=== PATIENT | female | born 1970 | race American Indian/Alaskan Native ===

== ENCOUNTER 2019-04-11 17:16 | Emergency (ER) | payer BC ==
[2019-04-11 17:44] VITALS: BP 141/86
[2019-04-11 18:13] LABS: Mean Corpuscular HGB Conc 33 % (30-34); Mean Corpuscular Volume 89 fl (79-97); Platelet Count 317 K/mm3 (140-440); Red Blood Count 5.07 M/mm3 (3.65-5.03)
[2019-04-11 18:36] LABS: Alanine Aminotransferase 50 units/L (7-56); Albumin 4.4 g/dL (3.9-5); BUN/Creatinine Ratio 23; Blood Urea Nitrogen 16 mg/dL (7-17); Calcium 9.7 mg/dL (8.4-10.2); Hemolysis Index 55
[2019-04-11 18:59] LABS: Basophils % (Manual) 0 % (0.0-1.8); Eosinophils % (Manual) 0 % (0.0-4.3); Total Cells Counted 100
[2019-04-11 19:00] LABS: Anisocytosis Few
--- NOTE | 2019-04-11 20:34 | Event Note ---
ED Screening Note ED Screening Note: 48 Y/O FEMALE PRESENTS TO ED C/O OF VOMITING AND RLQ SEVERE PAIN. NO FEVER OR CHILLS. NO HEMOPTYSIS The patient was seen in triage for ABOVE Labs/imaging ordered to evaluate for a cause of this complaint. Vital signs reviewed, patient awake and alert in NAD. This initial assessment/diagnostic orders/clinical plan/treatment(s) is/are subject to change based on patients health status, clinical progression and re- assessment by fellow clinical providers in the ED. Further treatment and workup at subsequent clinical providers discretion. Patient/guardian urged not to elope from the ED as their condition may be serious if not clinically assessed and managed. Initial orders include: CT ABDOMEN LABS IV
[2019-04-11 20:47] LABS: Bilirubin,Urine NEG (Negative); Blood,Urine NEG (Negative); Color,Urine Yellow (Yellow); Mucus,Urine FEW /HPF; Protein,Urine <15 mg/dL mg/dL (Negative); Urobilinogen,Urine < 2.0 mg/dL (<2.0)
[2019-04-11] MEDS ORDERED: ONDANSETRON 4 MG/2 ML INJ IV ONE (23:10)
[2019-04-11] MEDS ORDERED: SODIUM CHLORIDE 0.9% 1000 ML 1,000 ML IV ONE (23:10)
--- NOTE | 2019-04-11 23:58 | Emergency Department Report ---
ED Abdominal Pain HPI - General Chief Complaint: Abdominal Pain Stated Complaint: STOMACH PAIN/VOMIT Time Seen by Provider: 04/11/19 20:30 Source: patient Mode of arrival: Ambulatory Limitations: No Limitations - History of Present Illness Initial Comments: Ms. Estrada is a 48 Y/O FEMALE PRESENTS TO ED C/O OF VOMITING AND RLQ SEVERE PAIN. NO FEVER OR CHILLS. NO HEMOPTYSIS patient has history of hypertension and diabetes type 2, states nausea and vomiting exacerbated by by mouth intake. Symptoms are relieved by nothing tried. There is no fever no chills, no chest pain or shortness of breath. Patient has PCP at [facility] [place] however she was unable to get an appointment for today.Abdominal pain for over 10 radiating to bilateral lower quadrant. Patient denies history of abdominal surgeries. MD Complaint: abdominal pain Onset/Timin -: days(s) Location: LLQ, RLQ Radiation: LLQ, RLQ Severity: moderate Severity scale (0 -10): 5 Quality: cramping, aching Consistency: constant Improves With: nothing Worsens With: eating Associated Symptoms: nausea, vomiting. denies: diarrhea, fever, chills, constipation, dysuria, melena - Related Data LMP (females 10-50): other (post menopausal) Previous Rx's Medication Instructions Recorded Last Taken Type Dicyclomine [Bentyl] 10 mg PO QID PRN #30 capsule 04/12/19 Unknown Rx Naproxen 500 mg PO BID PRN #30 tablet 04/12/19 Unknown Rx Ondansetron [Zofran Odt] 4 mg PO Q8HR PRN #12 tab.rapdis 04/12/19 Unknown Rx Allergies Allergy/AdvReac Type Severity Reaction Status Date / Time No Known Allergies Allergy Verified 04/11/19 17:41 ED Review of Systems ROS: Stated complaint: STOMACH PAIN/VOMIT Other details as noted in HPI Constitutional: denies: chills, fever Eyes: denies: eye pain, eye discharge, vision change ENT: denies: ear pain, throat pain Respiratory: denies: cough, shortness of breath, wheezing Cardiovascular: denies: chest pain, palpitations Endocrine: no symptoms reported Gastrointestinal: abdominal pain, nausea, vomiting. denies: diarrhea, constipation Genitourinary: as per HPI. denies: urgency, dysuria, frequency, hematuria, discharge Musculoskeletal: denies: back pain, joint swelling, arthralgia Skin: denies: rash, lesions Neurological: denies: headache, weakness, paresthesias Psychiatric: denies: anxiety, depression Hematological/Lymphatic: denies: easy bleeding, easy bruising ED Past Medical Hx - Past Medical History Previous Medical History?: Yes Hx Hypertension: No Hx CVA: No Hx Heart Attack/AMI: No Hx Congestive Heart Failure: No Hx Diabetes: Yes Hx Deep Vein Thrombosis: No Hx Pulmonary Embolism: No Hx GERD: No Hx Liver Disease: No Hx Renal Disease: No Hx of Cancer: No Hx Sickle Cell Disease: No Hx Arthritis: No Hx Headaches / Migraines: No Hx Seizures: No Hx Kidney Stones: No Hx Psychiatric Treatment: No Hx Asthma: No Hx COPD: No Hx Tuberculosis: No Hx Dementia: No Hx HIV: No - Surgical History Past Surgical History?: Yes Hx Coronary Stent: No Hx Open Heart Surgery: No Hx Pacemaker: No Hx Internal Defibrillator: No Hx Cholecystectomy: No Hx Appendectomy: No Hx Breast Surgery: No Additional Surgical History: l5 fusion - Social History Smoking Status: Never Smoker Substance Use Type: None - Medications Home Medications: Home Medications Medication Instructions Recorded Confirmed Last Taken Type Dicyclomine [Bentyl] 10 mg PO QID PRN #30 capsule 04/12/19 Unknown Rx Naproxen 500 mg PO BID PRN #30 tablet 04/12/19 Unknown Rx Ondansetron [Zofran Odt] 4 mg PO Q8HR PRN #12 tab.rapdis 04/12/19 Unknown Rx ED Physical Exam - General Limitations: No Limitations General appearance: alert, in no apparent distress - Head Head exam: Present: atraumatic, normocephalic - Eye Eye exam: Present: normal appearance, PERRL, EOMI Pupils: Present: normal accommodation - ENT ENT exam: Present: mucous membranes moist - Neck Neck exam: Present: normal inspection, full ROM. Absent: tenderness, lymphadenopathy - Respiratory Respiratory exam: Present: normal lung sounds bilaterally. Absent: respiratory distress, wheezes, stridor, chest wall tenderness - Cardiovascular Cardiovascular Exam: Present: regular rate, normal heart sounds - GI/Abdominal GI/Abdominal exam: Present: soft, normal bowel sounds. Absent: distended, tenderness (bilat lower quads ), guarding, rebound, rigid, bruit, hernia - Rectal Rectal exam: Present: deferred - Extremities Exam Extremities exam: Present: normal inspection, full ROM, normal capillary refill. Absent: tenderness, pedal edema, joint swelling, calf tenderness - Back Exam Back exam: Present: normal inspection, full ROM. Absent: tenderness, CVA tenderness (R), CVA tenderness (L), muscle spasm, vertebral tenderness, rash noted - Neurological Exam Neurological exam: Present: alert, oriented X3, CN II-XII intact, normal gait - Psychiatric Psychiatric exam: Present: normal affect, normal mood - Skin Skin exam: Present: warm, dry, intact, normal color. Absent: rash ED Course Vital Signs 04/11/19 04/11/19 17:41 20:31 Temperature 97.8 F 97.8 F Pulse Rate 89 89 Respiratory 18 18 Rate Blood Pressure 141/86 141/86 O2 Sat by Pulse 98 98 Oximetry ED Medical Decision Making - Lab Data Result diagrams: 04/11/19 17:52 04/11/19 17:52 Labs 04/11/19 04/11/19 04/11/19 17:52 17:52 Unknown WBC 20.3 H RBC 5.07 H Hgb 15.0 H Hct 45.0 H MCV 89 MCH 30 MCHC 33 RDW 12.0 L Plt Count 317 Add Manual Diff Complete Total Counted 100 Seg Neuts % (Manual) 87.0 H Band Neutrophils % 0 Lymphocytes % (Manual) 11.0 L Reactive Lymphs % (Man) 0 Monocytes % (Manual) 2.0 Eosinophils % (Manual) 0 Basophils % (Manual) 0 Metamyelocytes % 0 Myelocytes % 0 Promyelocytes % 0 Blast Cells % 0 Nucleated RBC % Not Reportable Seg Neutrophils # Man 17.7 H Band Neutrophils # 0.0 Lymphocytes # (Manual) 2.2 Abs React Lymphs (Man) 0.0 Monocytes # (Manual) 0.4 Eosinophils # (Manual) 0.0 Basophils # (Manual) 0.0 Metamyelocytes # 0.0 Myelocytes # 0.0 Promyelocytes # 0.0 Blast Cells # 0.0 WBC Morphology Not Reportable Hypersegmented Neuts Not Reportable Hyposegmented Neuts Not Reportable Hypogranular Neuts Not Reportable Smudge Cells Not Reportable Toxic Granulation Not Reportable Toxic Vacuolation Not Reportable Dohle Bodies Not Reportable Pelger-Huet Anomaly Not Reportable Russell Rods Not Reportable Platelet Estimate Appears normal Clumped Platelets Not Reportable Plt Clumps, EDTA Not Reportable Large Platelets Not Reportable Giant Platelets Not Reportable Platelet Satelliting Not Reportable Plt Morphology Comment Not Reportable RBC Morphology Not Reportable Dimorphic RBCs Not Reportable Polychromasia Not Reportable Hypochromasia Not Reportable Poikilocytosis Not Reportable Anisocytosis Few Microcytosis Not Reportable Macrocytosis Not Reportable Spherocytes Not Reportable Pappenheimer Bodies Not Reportable Sickle Cells Not Reportable Target Cells Not Reportable Tear Drop Cells Not Reportable Ovalocytes Not Reportable Helmet Cells Not Reportable [place] Bodies Not Reportable [place] Rings Not Reportable [place] Cells Not Reportable Bite Cells Not Reportable Crenated Cell Not Reportable Elliptocytes Not Reportable Acanthocytes (Spur) Not Reportable Rouleaux Not Reportable Hemoglobin C Crystals Not Reportable Schistocytes Not Reportable Malaria parasites Not Reportable Kristopher Bodies Not Reportable Hem Pathologist Commnt No Sodium 134 L Potassium 4.1 Chloride 93.7 L Carbon Dioxide 21 L Anion Gap 23 BUN 16 Creatinine 0.7 Estimated GFR > 60 BUN/Creatinine Ratio 23 Glucose 269 H Calcium 9.7 Total Bilirubin 0.40 AST 26 ALT 50 Alkaline Phosphatase 110 Total Protein 8.1 Albumin 4.4 Albumin/Globulin Ratio 1.2 Lipase 34 Urine Color Yellow Urine Turbidity Clear Urine pH 5.0 Ur Specific Winner 1.035 H Urine Protein <15 mg/dl Urine Glucose (UA) >=500 Urine Ketones 20 Urine Blood Neg Urine Nitrite Neg Urine Bilirubin Neg Urine Urobilinogen < 2.0 Ur Leukocyte Esterase Neg Urine WBC (Auto) 2.0 Urine RBC (Auto) 1.0 U Epithel Cells (Auto) < 1.0 Urine Mucus Few - Radiology Data Radiology results: report reviewed, image reviewed Ordering Physician: DEBBY ROMAN Date of Service: 04/11/19 Procedure(s): CT abdomen pelvis w con Accession Number(s): [id number] cc: DEBBY ROMAN CT ABDOMEN AND PELVIS WITH IV CONTRAST INDICATION: Right lower quadrant abdominal pain TECHNIQUE: Following the administration of intravenous contrast, multiple axial CT images of the abdomen and pelvis were acquired. Sagittal and coronal reformats were obtained. All CT performed at this facility utilize dose reduction techniques including automated exposure control, iterative reconstruction and weight based dosing when appropriate to reduce patient radiation dose to as low as reasonably achievable. COMPARISON: None FINDINGS: Limited imaging of the bilateral lung bases demonstrates no acute abnormality. Abdomen: The liver is enlarged measuring 17 cm in greatest craniocaudal dimension. There is moderately decreased attenuation throughout the hepatic parenchyma. The gallbladder, spleen, pancreas, bilateral adrenal glands and bilateral kidneys show no evidence of acute abnormality. There is no evidence of bowel obstruction or free fluid. The appendix is not clearly identified, although there are no secondary signs of right lower quadrant inflammatory change. Pelvis: No free fluid is seen within the pelvis. The uterus and urinary bladder appear grossly normal. Bones and Soft Tissues: Evaluation of bony structures demonstrates previous posterior surgical stabilization of the L5-S1 level. Soft tissue structures appear grossly normal. IMPRESSION: 1. No CT evidence of acute inflammatory or obstructive process within the a bdomen or pelvis. 2. Hepatomegaly with hepatic steatosis. Signer Name: Alexandra Church MD Signed: 04/12/2019 12:12 AM Workstation Name: [id number] Transcribed By: EB Dictated By: Alexandra Church MD Electronically Authenticated By: Alexandra Church MD Signed Date/Time: 04/12/19 0012 DD/ 0008 TD/TT: - Medical Decision Making CT abdomen and pelvis normal, no bleed ,no mass, no other abnormality. Patient is now tolerating by mouth intake. vital signs are now normal. This is likely mild dehydration. Plan: Zofran, Bentyl, naproxen, follow up with PCP At [facility] jin 2-3 days. Patient verbalizes agreement and understanding of discharge plan patient will be DC'd home in stable condition at this time. Critical care attestation.: If time is entered above; I have spent that time in minutes in the direct care of this critically ill patient, excluding procedure time. ED Disposition Clinical Impression: Fatty liver Abdominal pain Qualifiers: Abdominal location: lower abdomen, unspecified Qualified Code(s): R10.30 - Lower abdominal pain, unspecified Disposition: DC-01 TO HOME OR SELFCARE Is pt being admited?: No Does the pt Need Aspirin: No Condition: Stable Instructions: Abdominal Pain (ED), Acute Nausea and Vomiting (ED), Dehydration (ED) Additional Instructions: follow up with your [facility] Doctor in 2 days. Prescriptions: Dicyclomine [Bentyl] 10 mg PO QID PRN #30 capsule PRN Reason: abdominal spasm Naproxen 500 mg PO BID PRN #30 tablet PRN Reason: pain Ondansetron [Zofran Odt] 4 mg PO Q8HR PRN #12 tab.rapdis PRN Reason: Nausea And Vomiting Referrals: PRIMARY CARE,MD [Primary Care Provider] - 3-5 Days Forms: Work/School Release Form(ED) Time of Disposition: 01:25
--- NOTE | 2019-04-12 00:17 | Cat Scan Report ---
CT ABDOMEN AND PELVIS WITH IV CONTRAST INDICATION: Right lower quadrant abdominal pain TECHNIQUE: Following the administration of intravenous contrast, multiple axial CT images of the abdo men and pelvis were acquired. Sagittal and coronal reformats were obtained. All CT performed at this facility utilize dose reduction techniques including automated exposure control, iterative reconstru ction and weight based dosing when appropriate to reduce patient radiation dose to as low as reasonab ly achievable. COMPARISON: None FINDINGS: Limited imaging of the bilateral lung bases demonstrates no acute abnormality. Abdomen: The liver is enlarged measuring 17 cm in greatest craniocaudal dimension. There is moderatel y decreased attenuation throughout the hepatic parenchyma. The gallbladder, spleen, pancreas, bilater al adrenal glands and bilateral kidneys show no evidence of acute abnormality. There is no evidence o f bowel obstruction or free fluid. The appendix is not clearly identified, although there are no seco ndary signs of right lower quadrant inflammatory change. Pelvis: No free fluid is seen within the pelvis. The uterus and urinary bladder appear grossly normal . Bones and Soft Tissues: Evaluation of bony structures demonstrates previous posterior surgical stabil ization of the L5-S1 level. Soft tissue structures appear grossly normal. IMPRESSION: 1. No CT evidence of acute inflammatory or obstructive process within the abdomen or pelvis. 2. Hepatomegaly with hepatic steatosis. Signer Name: Alexandra Church MD Signed: 04/12/2019 12:12 AM Workstation Name: [id number]
== END 2019-04-12 02:10 | disposition home or self-care (01) ==
LOC: ED 17:16
DX: K76.0 Fatty (change of) liver, not elsewhere classified (principal); R10.31 Right lower quadrant pain; R10.32 Left lower quadrant pain; R11.2 Nausea with vomiting, unspecified; E11.9 Type 2 diabetes mellitus without complications
CPT/HCPCS: 36415; 74177; 80053; 81001; 83690; 85007; 85025; 96361; 96374; 99284; J2405; J7030; Q9967